=== PATIENT | male | born 1985 | race Caucasian/White ===

== ENCOUNTER 2018-07-08 07:23 | Emergency (ER) | payer OTHER ==
[~2018-07-08] VITALS: Ht 185.4 cm; Wt 85.5 kg
[2018-07-08] MEDS ORDERED: XARELTO15 MG PO (10:26)
[2018-07-08 11:32] VITALS: BP 134/98
== END 2018-07-08 11:34 | disposition home or self-care (01) ==
LOC: EME 07:23
DX: I82.4Z2 Acute embolism and thrombosis of unspecified deep veins of left distal lower extremity (principal)
CPT/HCPCS: 93971; 99281; 99284